=== PATIENT | male | born 1995 | race Caucasian/White ===

== ENCOUNTER 2020-04-10 16:48 | Emergency (ER) | payer SELFPAY ==
[2020-04-10] MEDS ORDERED: NA CHLORIDE 0.9% 1,000 ML ONE (17:21)
[2020-04-10] MEDS ORDERED: FAMOTIDINE 20 MG/2 ML VIAL IV ONE (17:21)
[2020-04-10 17:22] LABS: Basophils % 0.5 % (0-1.3); Hematocrit 37.9 % (39.6-49.0); Lymphocytes % 18.9 % (15.3-44.8); RBC Red Blood Cell Count 4.18 M/uL (4.33-5.43)
[2020-04-10 17:30] LABS: ALT/SGPT 60 U/L (12-78); AST/SGOT 56 U/L (15-37); Albumin 3.9 g/dL (3.4-5.0); Alkaline Phosphatase 61 U/L (45-117); BUN Blood Urea Nitrogen 17 mg/dL (7-18); Bicarbonate 30 mmol/L (21-32); Bilirubin Direct 0.2 mg/dL (0-0.2); Bilirubin Total 0.4 mg/dL (0.2-1.0); Glucose Level 73 mg/dL (74-106); Lipase 135 U/L (73-393); Potassium 3.5 mmol/L (3.5-5.1); Protein, Total 7.4 g/dL (6.4-8.2); Sodium Level 137 mmol/L (136-145)
[2020-04-10 17:33] LABS: Urine Blood NEGATIVE (NEG); Urine Glucose NEGATIVE (NEG); Urine Protein 1+ (NEG)
--- NOTE | 2020-04-10 18:03 | ER ---
Nurse's Notes [facility] Name: Ramu Valdez Age: 24 yrs Sex: Male : 1995 Arrival Date: 04/10/2020 Time: 16:50 Bed 20 Private MD: Diagnosis: Abdominal tenderness;Gastritis, unspecified;Alcohol abuse Presentation: 04/10 16:52 Chief complaint: Patient states: Sudden onset of epigastric pain that radiates into ll1 left chest since 1605 while walking into [employer] . Had nausea and became sweaty. States he drank a lot of whiskey last night. EMS states: EKG:NS, 18 G L AC, 300 ml NS bolus given. Aspirin 324mg and 1 nitro given en route. Phenergan 12.5 mg given, nausea and chest pain are better. Fingerstick 96. Coronavirus screen: Client denies travel out of the [place] in the last 14 days. At this time, the client does not indicate any symptoms associated with coronavirus-19. Ebola Screen: Patient denies travel to an Ebola-affected area in the 21 days before illness onset. Initial Sepsis Screen: Does the patient meet any 2 criteria? No. Patient's initial sepsis screen is negative. Does the patient have a suspected source of infection? Yes: Acute abdominal pain. Risk Assessment: Do you want to hurt yourself or someone else? Patient reports no desire to harm self or others. Onset of symptoms was April 10, 2020. 16:52 Method Of Arrival: EMS: [place] [id number] 16:52 Acuity: CARMINE 3 ll1 Historical: - Allergies: 16:55 No Known Allergies; ll1 - PMHx: 16:55 Anxiety; Depression; Bipolar disorder; ll1 - Immunization history:: Flu vaccine is not up to date. - Social history:: Smoking status: Reported history of juuling and/or vaping. Patient denies any tobacco usage or history of. - Family history:: not pertinent. Screenin:00 Abuse screen: Denies threats or abuse. Denies injuries from another. Nutritional ss screening: No deficits noted. Tuberculosis screening: Never had TB. Fall Risk None identified. Assessment: 17:00 General: Appears in no apparent distress. comfortable, Behavior is calm, cooperative, ss Denies fever, feeling ill, fatigue, chills. Pain: Complains of pain in epigastric area Pain currently is 0 out of 10 on a pain scale. at worst was 7 out of 10 on a pain scale. Quality of pain is described as burning, aching, Pain began Is episodic. Neuro: Level of Consciousness is awake, alert, obeys commands, Oriented to person, place, time, situation. Cardiovascular: Capillary refill < 3 seconds is brisk in bilateral fingers. Respiratory: Denies cough, shortness of breath labored breathing. GI: Patient currently denies diarrhea, nausea, vomiting. : No signs and/or symptoms were reported regarding the genitourinary system. Denies burning with urination, urinary frequency. EENT: Oral mucosa is moist. Throat is clear. Derm: Skin is intact, is healthy with good turgor, Skin is pink, warm \T\ dry. normal. Musculoskeletal: Circulation, motion, and sensation intact. Range of motion: intact in all extremities, Swelling absent. 18:17 Reassessment: Patient appears in no apparent distress at this time. Patient and/or ss family updated on plan of care and expected duration. Pain level reassessed. Patient is alert, oriented x 3, equal unlabored respirations, skin warm/dry/pink. Patient denies pain at this time. Vital Signs: 16:52 BP 132 / 84; Pulse 62; Resp 17; Temp 97.8; Pulse Ox 100% ; Weight 79.38 kg; Height 6 ll1 ft. 0 in. (182.88 cm); Pain 2/10; 16:52 Body Mass Index 23.73 (79.38 kg, 182.88 cm) ll1 ED Course: 16:50 Patient arrived in ED. 16:54 Ruben Dacosta MD is Attending Physician. [facility] 16:55 Triage completed. ll1 16:56 Arm band placed on Patient placed in an exam room, on a stretcher. ll1 17:00 Patient has correct armband on for positive identification. Bed in low position. Call ss light in reach. Side rails up X 1. Pulse ox on. NIBP on. 17:04 Nia Powell RN is Primary Nurse. 17:05 Maintain EMS IV. Dressing intact. Good blood return noted. Site clean \T\ dry. Gauge \T\ site: 18 gauge in L AC. Patient maintains SpO2 saturation greater than 95% on room air. 17:18 Urine collected: clean catch specimen, clear. 3 17:53 Chest Single View XRAY In Process Unspecified. EDCO 17:57 EKG done, by ED staff, reviewed by Ruben Dacosta MD. formerly [facility] 18:17 No provider procedures requiring assistance completed. IV discontinued, intact, ss bleeding controlled, No redness/swelling at site. Pressure dressing applied. Administered Medications: 17:15 Drug: NS 0.9% 1000 ml Route: IV; Rate: 1 bolus; Site: right antecubital; 18:17 Follow up: IV Status: Completed infusion; IV Intake: 1000ml 17:15 Drug: Pepcid 20 mg Route: IVP; Site: right antecubital; 18:18 Follow up: Response: No adverse reaction ss Intake: 18:17 IV: 1000ml; Total: 1000ml. ss Outcome: 18:02 Discharge ordered by . [facility] 18:17 Discharged to home ambulatory. 18:17 Condition: improved 18:17 Discharge instructions given to patient, Instructed on discharge instructions, follow up and referral plans. medication usage, Demonstrated understanding of instructions, follow-up care, medications, Prescriptions given X 1. 18:17 Patient left the ED. ss Signatures: Dispatcher [employer] EDCO Ruben Dacosta MD MD cha Smirch, Shelby, RN RN Glory Hernandez formerly [facility] Esau Araujo, RN RN ll1
--- NOTE | 2020-04-10 18:03 | EDPHYS ---
Physician Documentation [facility] Name: Ramu Valdez Age: 24 yrs Sex: Male : 1995 Arrival Date: 04/10/2020 Time: 16:50 Bed 20 Private MD: ED Physician Ruben Dacosta HPI: 04/10 17:25 This 24 yrs old Male presents to ER via EMS with complaints of Epigastric giovanni Pain. 17:25 The patient or guardian reports chest pain that is located primarily in the substernal giovanni area, epigastric area. The patient presents with abdominal pain in the epigastric area, in the upper abdomen. Onset: The symptoms/episode began/occurred just prior to arrival. The symptoms radiate to chest. The pain does not radiate. Associated signs and symptoms: none. Modifying factors: The symptoms are alleviated by nothing, the symptoms are aggravated by nothing. The chest pain is described as burning. Historical: - Allergies: 16:55 No Known Allergies; ll1 - PMHx: 16:55 Anxiety; Depression; Bipolar disorder; ll1 - Immunization history:: Flu vaccine is not up to date. - Social history:: Smoking status: Reported history of juuling and/or vaping. Patient denies any tobacco usage or history of. - Family history:: not pertinent. ROS: 17:25 Constitutional: Negative for fever, chills, and weight loss, Eyes: Negative for injury, giovanni pain, redness, and discharge, ENT: Negative for injury, pain, and discharge, Neck: Negative for injury, pain, and swelling, Respiratory: Negative for shortness of breath, cough, wheezing, and pleuritic chest pain, Back: Negative for injury and pain, : Negative for injury, bleeding, discharge, and swelling, MS/Extremity: Negative for injury and deformity, Skin: Negative for injury, rash, and discoloration, Neuro: Negative for headache, weakness, numbness, tingling, and seizure, Psych: Negative for depression, anxiety, suicide ideation, homicidal ideation, and hallucinations, Allergy/Immunology: Negative for hives, rash, and allergies, Endocrine: Negative for neck swelling, polydipsia, polyuria, polyphagia, and marked weight changes, Hematologic/Lymphatic: Negative for swollen nodes, abnormal bleeding, and unusual bruising. 17:25 Cardiovascular: Positive for chest pain. 17:25 Abdomen/GI: Positive for abdominal pain, of the epigastric area, right upper quadrant and left upper quadrant. Exam: 17:25 Constitutional: This is a well developed, well nourished patient who is awake, alert, giovanni and in no acute distress. Head/Face: Normocephalic, atraumatic. Eyes: Pupils equal round and reactive to light, extra-ocular motions intact. Lids and lashes normal. Conjunctiva and sclera are non-icteric and not injected. Cornea within normal limits. Periorbital areas with no swelling, redness, or edema. ENT: Nares patent. No nasal discharge, no septal abnormalities noted. Tympanic membranes are normal and external auditory canals are clear. Oropharynx with no redness, swelling, or masses, exudates, or evidence of obstruction, uvula midline. Mucous membranes moist. Neck: Trachea midline, no thyromegaly or masses palpated, and no cervical lymphadenopathy. Supple, full range of motion without nuchal rigidity, or vertebral point tenderness. No Meningismus. Chest/axilla: Normal chest wall appearance and motion. Nontender with no deformity. No lesions are appreciated. Cardiovascular: Regular rate and rhythm with a normal S1 and S2. No gallops, murmurs, or rubs. Normal PMI, no JVD. No pulse deficits. Respiratory: Lungs have equal breath sounds bilaterally, clear to auscultation and percussion. No rales, rhonchi or wheezes noted. No increased work of breathing, no retractions or nasal flaring. Back: No spinal tenderness. No costovertebral tenderness. Full range of motion. Skin: Warm, dry with normal turgor. Normal color with no rashes, no lesions, and no evidence of cellulitis. MS/ Extremity: Pulses equal, no cyanosis. Neurovascular intact. Full, normal range of motion. Neuro: Awake and alert, GCS 15, oriented to person, place, time, and situation. Cranial nerves II-XII grossly intact. Motor strength 5/5 in all extremities. Sensory grossly intact. Cerebellar exam normal. Normal gait. Psych: Awake, alert, with orientation to person, place and time. Behavior, mood, and affect are within normal limits. 17:25 Abdomen/GI: Inspection: abdomen appears normal, Bowel sounds: normal, Palpation: mild abdominal tenderness, in the epigastric area, right upper quadrant and left upper quadrant, Liver: no appreciated palpable abnormalities, Hernia: not appreciated. 18:03 ECG was reviewed by the Attending Physician. [facility] Vital Signs: 16:52 BP 132 / 84; Pulse 62; Resp 17; Temp 97.8; Pulse Ox 100% ; Weight 79.38 kg; Height 6 ll1 ft. 0 in. (182.88 cm); Pain 2/10; 16:52 Body Mass Index 23.73 (79.38 kg, 182.88 cm) ll1 MDM: 16:54 Patient medically screened. [facility] 17:28 Data reviewed: vital signs, nurses notes, lab test result(s), radiologic studies, plain [facility] films. 17:59 Differential diagnosis: abnormal EKG, acute myocardial infarction, anxiety, coronary giovanni artery disease cholecystitis, Cholelithiasis esophagitis, gastroesophageal reflux disease (GERD), hiatal hernia, pancreatitis, pericarditis, pneumonia, pneumothorax, stable angina, unstable angina, gastritis, gastroesophageal reflux disease, myocardia ischemia or infarction, non-specific abd pain, urinary tract infection. HEART Score: History: Slightly Suspicious (0), ECG: Normal (0), Age: < or = 45 years (0), Risk Factors: No Risk Factors Known (0), Troponin: < or = 1 x Normal Limit (0). The patient's deep vein thrombosis risk score was calculated as follows: Total Score: 0. This patient was found to be at low risk for a deep vein thrombosis by using the Well's assessment criteria. The patient's pulmonary embolism risk score was calculated as follows: Total Score: 0-2 points. This patient was found to be at low risk for a pulmonary embolism by using the Well's assessment criteria. ERIN Risk Score: TOTAL SCORE = 0. Data interpreted: school bus monitor: rate is 62 beats/min, rhythm is regular, Pulse oximetry: on room air is 100 %. Test interpretation: by ED physician or midlevel provider: ECG, plain radiologic studies. Counseling: I had a detailed discussion with the patient and/or guardian regarding: the historical points, exam findings, and any diagnostic results supporting the discharge/admit diagnosis, lab results, radiology results, the need for outpatient follow up, for definitive care, a family practitioner. 04/10 16:54 Order name: Basic Metabolic Panel; Complete Time: 17:59 [facility] 04/10 16:54 Order name: CBC with Diff; Complete Time: 17:59 [facility] 04/10 16:54 Order name: Hepatic Function; Complete Time: 17:59 [facility] 04/10 16:54 Order name: Lipase; Complete Time: 17:59 [facility] 04/10 17:18 Order name: Alcohol Level; Complete Time: 17:59 [facility] 04/10 17:23 Order name: Troponin I; Complete Time: 17:59 [facility] 04/10 16:54 Order name: IV Saline Lock; Complete Time: 17:05 [facility] 04/10 16:54 Order name: Labs collected and sent; Complete Time: 17:05 [facility] 04/10 16:55 Order name: Urine Dipstick-Ancillary (obtain specimen); Complete Time: 17:15 [facility] 04/10 17:23 Order name: Chest Single View XRAY [facility] 04/10 17:23 Order name: EKG; Complete Time: 17:24 [facility] 04/10 17:31 Order name: Urine Dipstick--Ancillary (enter results); Complete Time: 17:59 04/10 17:23 Order name: EKG - Nurse/Tech; Complete Time: 17:59 [facility] EC:03 Rate is 65 beats/min. Rhythm is regular. QRS [place] is Normal. PA interval is normal. QRS giovanni interval is normal. QT interval is normal. No Q waves. T waves are Normal. No ST changes noted. Clinical impression: NSR w/ Non-specific ST/T Changes and No evidence of ischemia. Interpreted by me. Reviewed by me. Administered Medications: 17:15 Drug: NS 0.9% 1000 ml Route: IV; Rate: 1 bolus; Site: right antecubital; 18:17 Follow up: IV Status: Completed infusion; IV Intake: 1000ml 17:15 Drug: Pepcid 20 mg Route: IVP; Site: right antecubital; ss 18:18 Follow up: Response: No adverse reaction Disposition: 04/10/20 18:02 Discharged to Home. Impression: Abdominal tenderness, Gastritis, unspecified, Alcohol abuse. - Condition is Stable. - Discharge Instructions: Abdominal Pain, Adult, Gastritis, Adult, Gastritis, Adult, [id number], Abdominal Pain, Adult, [id number], Alcohol Abuse and Nutrition. - Prescriptions for Pepcid 20 mg Oral Tablet - take 1 tablet by ORAL route every 12 hours for 10 days; 20 tablet. - Medication Reconciliation Form, Thank You Letter, Antibiotic Education, Prescription Opioid Use form. - Follow up: Private Physician; When: 2 - 3 days; Reason: Recheck today's complaints, Continuance of care, Re-evaluation by your physician. - Problem is new. - Symptoms have improved. Signatures: Dispatcher [employer] EDME Ruben Dacosta MD MD cha Smirch, Shelby, RN RN ss Esau Araujo RN RN ll1 Corrections: (The following items were deleted from the chart) 18:17 18:02 04/10/2020 18:02 Discharged to Home. Impression: Abdominal tenderness; Gastritis, ss unspecified; Alcohol abuse. Condition is Stable. Forms are Medication Reconciliation Form, Thank You Letter, Antibiotic Education, Prescription Opioid Use. Follow up: Private Physician; When: 2 - 3 days; Reason: Recheck today's complaints, Continuance of care, Re-evaluation by your physician. Problem is new. Symptoms have improved. giovanni
--- NOTE | 2020-04-10 18:20 | RAD REPORT ---
EXAM DESCRIPTION: Chele Single View04/10/2020 5:53 pm CLINICAL HISTORY: Chest pain COMPARISON: 2009 FINDINGS: The lungs appear clear of acute infiltrate. The heart is normal size IMPRESSION: No acute abnormalities displayed
[2020-04-10 18:37] VITALS: BP 132/84; TEMP 97.8; O2SAT 100
--- NOTE | 2020-04-12 07:45 | EKG ---
Test Date: 2020-04-10 Test Time: 17:57:09 Hospital Social Worker: MARTHA MEASUREMENT RESULTS: Intervals: Rate: 65 DE: 180 QRSD: 110 QT: 420 QTc: 436 [place]: P: 55 DE: 180 QRS: 68 T: 50 INTERPRETIVE STATEMENTS: Normal sinus rhythm RSR' or QR pattern in V1 suggests right ventricular conduction delay Septal infarct, age undetermined Abnormal ECG No previous ECG available for comparison Electronically Signed On 04-12-20 07:43:11 CDT by Yonis Guillen
== END 2020-04-10 18:17 | disposition home or self-care (01) ==
LOC: ER 16:48
DX: K29.70 Gastritis, unspecified, without bleeding (principal); F10.10 Alcohol abuse, uncomplicated; Z87.891 Personal history of nicotine dependence
CPT/HCPCS: 36415; 71045; 80048; 80076; 80320; 81003; 83690; 84484; 85025; 93005; 96361; 96374; 99284; J7030

== ENCOUNTER 2022-06-22 12:27 | Emergency (ER) | payer SELFPAY ==
--- OUTSIDE RECORDS SUMMARY | 2022-06-22 12:30 | XMS REPORT | Continuity of Care Document ---
:1995 Author Organization [facility] t Address [address] [place] [address] Care Team Providers Name Role Phone Pcp, Patient Does Not Have A Primary Care Physician +[id number] Bella Temple Attending Clinician Payers Payer Name Policy Type Policy Number Effective Date Expiration Date S ource Problems Condition Condition Condition Status Onset Resolution Last Treating Co mments Source Name Details Category Date Date Treatment Clinician Date Anticholin Anticholin Disease Active U nivers ergic drug ergic drug 03-03 it y of overdose overdose 00:00: [place] 00 [facility] Fracture Fracture Disease Active [facility] [place] [facility] [place] 4[facility]19 it y of of left of left 00:00: [place] foot, open foot, open 00 Me dical Branch Allergies, Adverse Reactions, Alerts Allergy Allergy Status Severity Reaction(s) Onset Inactive Treating Comm ents Source Name Type Date Date Clinician NO KNOWN Drug Active Univers ALLERGIE Class ity of [facility] [place] [facility] Social History Social Habit Start Date Stop Date Quantity Comments Source History SDOH University o f Alcohol Std [place] [facility] Drinks [facility] History SDOH University o f Alcohol Binge [place] [facility] Exposure to Not sure University of SARS-CoV-2 [place] [facility] (event) Branch History SDOH University o f Alcohol Frequency [place] [facility] Alcohol intake 2021-03-15 2021-03-15 Current drinker Unive rsity of 00:00:00 00:00:00 of alcohol [place] [facility] (finding) Branch Alcohol Comment 2017-03-03 2017-03-03 6 pack a day/ Univer sity of 00:00:00 00:00:[facility] At [birth year] Universit y of 00:00:00 00:00:00 [facility] Smoking Status Start Date Stop Date Source Former smoker 2017-03-03 00:00:00 2017-03-03 00:00:00 [facility] Medications Ordered Filled Start Stop Current Ordering Indication Dosage Frequency Signature Comments Components Source Medication Medication Date Date Medication? Clinician (SIG) Name Name ibuprofen No 600mg 600 mg, Uni vers (IBU) 03-19 Oral, ity of tablet 600 02:45: 14:44 ONCE, 1 Var[place] as mg 00 :00 dose, On Medical Fri Branch 03/18/21 at 2145, MATT cephALEXin No 500mg 500 mg, Un michael (KEFLEX) 03-19 Oral, ity of capsule 500 02:45: 14:44 [place] 1 [place] :[place] dose, On Medical Fri Branch 03/18/21 at 2145, MATT
Re ason for Anti-Infec tive: Empiric Non-Surgic al Prophylaxi s
Durat ion of therapy: 72 hours ibuprofen Yes [id number] 600mg Take 1 Univers 600 mg 03-18 tablet by ity of tablet 00:00: mouth [place] 00 every 6 Medical (six) Branch hours as needed for Pain (scale 4-6). cephALEXin 2020- No [id number] 500mg Take 1 Univers (KEFLEX) 03-18 capsule by ity of 500 mg 00:00: 04:59 mouth 3 [place] capsule 00 :00 (three) Medical times Branch daily for 7 days. Immunizations Ordered Filled Immunization Date Status Comments Sourc e Immunization Name Name Td 2021-03-15 Completed [facility] 00:00:00 [facility] Vital Signs Vital Name Observation Time Observation Value Comments Source Systolic blood 2021-03-18 23:19:00 121 mm[Hg] Univer sity of pressure [facility] Diastolic blood 2021-03-18 23:19:00 77 mm[Hg] Unive rsity of pressure [facility] Heart rate 2021-03-18 23:19:00 74 /min Universi ty [facility] Body temperature 2021-03-18 23:19:00 37.33 [facility] Respiratory rate 2021-03-18 23:19:00 19 /[facility] Body height 2021-03-18 23:19:00 175.3 cm Universi ty [facility] Body weight 2021-03-18 23:19:00 78.019 kg Universi ty [facility] BMI 2021-03-18 23:19:00 25.40 kg/m2 Universi ty [facility] Oxygen saturation in 2021-03-18 23:19:00 99 /min [facility] Arterial blood by [facility] Pulse oximetry [place] Procedures Procedure Date / Time Performed Performing Clinician [facility] e ASSIGNMENT OF BENEFITS 2021-03-19 00:05:31 Doctor Unassigned, No [facility] NOTICE OF PRIVACY 2021-03-18 23:03:03 Doctor Unassigned, No [facility] Encounters Start End Encounter Admission Attending Care Care Encounter Source Date/Time Date/Time Type Type Clinicians Facility Department ID 2021-03-18 2021-03-18 Emergency [place], [facility] [id number] Univers 18:23:00 20:48:00 Bella Infante [id number] i ty [facility] [id number] [facility] [id number] Medi kristin 084 Branch 2021-03-18 2021-03-18 Emergency X [facility] ERT [id number] Univers 18:23:00 18:23:00 ity [facility] Results This patient has no known results.
[2022-06-22] MEDS ORDERED: BUPIVACAINE 0.5% PF 10 ML VIAL ONE (13:01)
[2022-06-22] MEDS ORDERED: LORAZEPAM 1 MG TABLET ONE (13:01)
--- NOTE | 2022-06-22 13:54 | EDPHYS ---
Physician Documentation [facility] Name: Ramu Valdez Age: 26 yrs Sex: Male : 1995 Arrival Date: 06/22/2022 Time: 12:28 Bed 5 Private MD: ED Physician Brian Villegas HPI: 06/22 12:38 This 26 yrs old Male presents to ER via Ambulatory with complaints of Finger Injury. jmm 12:38 The patient or guardian reports injury, a laceration. Onset: The symptoms/episode jmm began/occurred acutely, just prior to arrival. Modifying factors: The symptoms are alleviated by nothing, the symptoms are aggravated by nothing. Associated signs and symptoms: Pertinent negatives: cyanosis distally, decreased sensation distally, fever, nausea, numbness distally, tingling distally, vomiting. The patient has experienced similar episodes in the past. Patient states accidentally cutting his left middle finger with a new knife.. Historical: - Allergies: 12:32 No Known Allergies; ss - PMHx: 12:32 Anxiety; Bipolar disorder; Depression; ss ROS: 12:38 Constitutional: Negative for fever, chills, and weight loss, Cardiovascular: Negative jmm for chest pain, palpitations, and edema, Respiratory: Negative for shortness of breath, cough, wheezing, and pleuritic chest pain. 12:38 MS/extremity: Positive for injury or acute deformity, laceration. 12:38 All other systems are negative. Exam: 12:38 Constitutional: This is a well developed, well nourished patient who is awake, alert, jmm and in no acute distress. Head/Face: atraumatic. Eyes: EOMI, no conjunctival erythema appreciated ENT: Moist Mucus Membranes Neck: Trachea midline, Supple Chest/axilla: Normal chest wall appearance and motion. Cardiovascular: Regular rate and rhythm. No edema appreciated Respiratory: Normal respirations, no respiratory distress appreciated Abdomen/GI: Non distended Back: Normal ROM 12:38 Skin: 1.5 cm laceration to the palmar surface of the left third distal phalanx. 12:38 Neuro: Orientation: is normal, Mentation: is normal, Memory: is normal. 12:38 Psych: Behavior/mood is pleasant, cooperative. Vital Signs: 12:31 BP 133 / 88; Pulse 79; Resp 16; Temp 98.3; Pulse Ox 100% ; Weight 68.04 kg; Height 6 ss ft. (182.88 cm); Pain 5/10; 12:31 Body Mass Index 20.34 (68.04 kg, 182.88 cm) ss MDM: 12:38 Patient medically screened. [facility] 13:52 Data reviewed: vital signs, nurses notes. Counseling: I had a detailed discussion with [facility] the patient and/or guardian regarding: the historical points, exam findings, and any diagnostic results supporting the discharge/admit diagnosis, the need for outpatient follow up, to return to the emergency department if symptoms worsen or persist or if there are any questions or concerns that arise at home. Administered Medications: 13:00 Drug: Ativan (LORazepam) 1 mg Route: PO; aa5 13:50 Follow up: Response: No adverse reaction; Anxiety decreased aa5 13:50 Drug: Marcaine (bupivacaine) (0.5 %) 10 ml {Note: administered by PA. Lv} Volume: 10 ss ml; Route: Infiltration; Disposition: 14:35 Co-signature as Attending Physician, Brian Villegas MD I agree with the assessment and rt plan of care. Disposition Summary: 06/22/22 13:53 Discharge Ordered Location: Home [facility] Condition: Stable [facility] Diagnosis - Finger Laceration [facility] Followup: [facility] - With: Private Physician - When: 7 - 10 days - Reason: Recheck today's complaints, Continuance of care, Staple/Suture removal, Re-evaluation by your physician Discharge Instructions: - Discharge Summary Sheet [facility] - Laceration Care, Adult [facility] Forms: - Medication Reconciliation Form [facility] - Thank You Letter [facility] - Antibiotic Education [facility] - Prescription Opioid Use [facility] Prescriptions: - Doxycycline Hyclate 100 mg Oral Tablet - take 1 tablet by ORAL route every 12 hours; 20 tablet; Refills: 0, Product [facility] Selection Permitted Signatures: Lv Iglesias PA PA jmm Calderon, Audri RN RN aa5 Nia Powell RN RN ss [place], Ryan, MD MD rt
--- NOTE | 2022-06-22 13:54 | ER ---
Nurse's Notes [facility] Name: Ramu Valdez Age: 26 yrs Sex: Male : 1995 Arrival Date: 06/22/2022 Time: 12:28 Bed 5 Private MD: Diagnosis: Finger Laceration Presentation: 06/22 12:31 Chief complaint: Left middle finger laceration from clean knife just [employer]. Bleeding ss controlled. Coronavirus screen: At this time, the client does not indicate any symptoms associated with coronavirus-19. Ebola Screen: No symptoms or risks identified at this time. Risk Assessment: Do you want to hurt yourself or someone else? Patient reports no desire to harm self or others. Onset of symptoms was June 22, 2022. 12:31 Method Of Arrival: Ambulatory ss 12:31 Acuity: CARMINE 4 ss 12:45 Initial Sepsis Screen: Does the patient meet any 2 criteria? No. Patient's initial aa5 sepsis screen is negative. Does the patient have a suspected source of infection? No. Patient's initial sepsis screen is negative. Historical: - Allergies: 12:32 No Known Allergies; ss - PMHx: 12:32 Anxiety; Bipolar disorder; Depression; ss Screenin:45 Abuse screen: Denies threats or abuse. Nutritional screening: No deficits noted. aa5 Tuberculosis screening: No symptoms or risk factors identified. 12:45 [facility] ED Fall Risk Assessment (Adult) History of falling in the last 3 months, aa5 including since admission No falls in past 3 months (0 pts) Confusion or Disorientation No (0 pts) Intoxicated or Sedated No (0 pts) Impaired Gait No (0 pts) Mobility Assist Device Used No (0 pt) Altered Elimination No (0 pt) Score/Fall Risk Level 0 - 2 = Low Risk Maintained a safe environment, Educated pt \T\ family on fall prevention, incl call for assistance when getting out of bed. Assessment: 12:45 General: Appears uncomfortable, Behavior is calm, cooperative. Pain: Complains of pain aa5 in left middle finger Pain currently is 5 out of 10 on a pain scale. Neuro: Level of Consciousness is awake, alert, obeys commands, Oriented to person, place, time, situation. Cardiovascular: Capillary refill < 3 seconds is brisk in bilateral fingers. Respiratory: Airway is patent Respiratory effort is even, unlabored, Respiratory pattern is regular, symmetrical. GI: No signs and/or symptoms were reported involving the gastrointestinal system. : No signs and/or symptoms were reported regarding the genitourinary system. EENT: No signs and/or symptoms were reported regarding the EENT system. Derm: Skin is pink, warm \T\ dry. Laceration noted to distal aspect of left middle finger, measuring approximately 1-2 cm long, bleeding controlled, dressing in place. Musculoskeletal: Range of motion: intact in all extremities. 14:15 Reassessment: Patient is alert, oriented x 3, equal unlabored respirations, skin aa5 warm/dry/pink. Vital Signs: 12:31 BP 133 / 88; Pulse 79; Resp 16; Temp 98.3; Pulse Ox 100% ; Weight 68.04 kg; Height 6 ss ft. (182.88 cm); Pain 5/10; 12:31 Body Mass Index 20.34 (68.04 kg, 182.88 cm) ss ED Course: 12:28 Patient arrived in ED. mr 12:28 Lv Iglesias PA is PHCP. jmm 12:29 Silver Anthony MD is Attending Physician. jmm 12:29 Brian Villegas MD is Attending Physician. jmm 12:32 Triage completed. ss 12:35 Princess Euceda, RN is Primary Nurse. aa5 12:45 Patient has correct armband on for positive identification. Bed in low position. aa5 13:50 Assist provider with laceration repair on left middle finger using sutures. Set up aa5 tray. Performed by Lv RAMSEY Dressed with Neosporin, 2x2 and Coban Patient tolerated well. 13:50 Patient did not have IV access during this emergency room visit. aa5 Administered Medications: 13:00 Drug: Ativan (LORazepam) 1 mg Route: PO; aa5 13:50 Follow up: Response: No adverse reaction; Anxiety decreased aa5 13:50 Drug: Marcaine (bupivacaine) (0.5 %) 10 ml {Note: administered by ROXY Awan.} Volume: 10 ss ml; Route: Infiltration; Medication: 13:50 VIS not applicable for this client. aa5 Outcome: 13:53 Discharge ordered by . [facility] 14:15 Discharged to home ambulatory. aa5 14:15 Condition: good 14:15 Discharge instructions given to patient, Instructed on discharge instructions, follow up and referral plans. medication usage, Demonstrated understanding of instructions, follow-up care, medications, Prescriptions given X 1. 14:17 Patient left the ED. ss Signatures: Lv Iglesias PA PA jmm Rivera, Mary mr Euceda, Princess, RN RN aa5 Nia Powell RN RN ss
[2022-06-22 14:28] VITALS: BP 133/88; TEMP 98.3; O2SAT 100
== END 2022-06-22 14:17 | disposition home or self-care (01) ==
LOC: ER 12:27
PROC: 0JQK0ZZ Repair Left Hand Subcutaneous Tissue and Fascia, Open Approach (ICD-10-PCS; principal; 2022-06-22)
DX: S61.213A Laceration without foreign body of left middle finger without damage to nail, initial encounter (principal)
CPT/HCPCS: 99283

== ENCOUNTER 2023-03-13 09:05 | Emergency (ER) | payer OTHER ==
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
--- NOTE | 2023-03-13 09:16 | EDPHYS ---
Physician Documentation [facility] Name: Ramu Valdez Age: 27 yrs Sex: Male : 1995 Arrival Date: 03/13/2023 Time: 09:05 Bed IW1 Private MD: ED Physician Zurdo Bush HPI: 03/13 09:25 This 27 yrs old Male presents to ER via Ambulatory with complaints of Insect Bite - kb Possible Spider, Numbness Of Arm, [place]. 09:25 the patient presents with a swollen area of the right wrist. Description: erythematous. kb Onset: The symptoms/episode began/occurred just prior to arrival. Possible cause(s): spider bite. Associated signs and symptoms: Pertinent positives: erythema. Modifying factors: the symptoms are alleviated by nothing, the symptoms are aggravated by nothing. Severity of symptoms: At their worst the symptoms were very mild, in the emergency department the symptoms are unchanged. The patient has not experienced similar symptoms in the past. The patient has not recently seen a physician. Pt reports he believes he was bit by a spider this morning. Noticed an area of redness with two small holes. States he feels numbness and tingling around the area. . Historical: - Allergies: 09:17 No Known Allergies; ap3 - Home Meds: 09:17 None [Active]; ap3 - PMHx: 09:17 Anxiety; Bipolar disorder; Depression; ap3 - Immunization history:: Client reports having NOT received the Covid vaccine. - Social history:: Smoking status: Reported history of juuling and/or vaping. ROS: 09:23 Constitutional: Negative for fever, chills, and weight loss. kb 09:23 Skin: Positive for erythema, insect bite. 09:23 All other systems are negative. Exam: 09:23 Constitutional: This is a well developed, well nourished patient who is awake, alert, kb and in no acute distress. Head/Face: Normocephalic, atraumatic. ENT: Moist Mucous membranes Cardiovascular: Regular rate Respiratory: Respirations even and unlabored. No increased work of breathing. Talking in full sentences MS/ Extremity: Pulses equal, no cyanosis. Neurovascular intact. Full, normal range of motion. Neuro: Awake and alert, GCS 15, oriented to person, place, time, and situation. Moves all extremities. Normal gait. 09:23 Constitutional: The patient appears anxious. 09:23 Skin: erythema, insect bite to palmar aspect of right forearm. . Vital Signs: 09:16 BP 156 / 90; Pulse 73; Resp 18; Temp 98.2; Pulse Ox 99% ; Weight 72.57 kg; Pain 2/10; ap3 09:16 Pain Scale: Adult ap3 MDM: 09:14 Patient medically screened. kb 09:30 Differential diagnosis: abscess, allergic reaction, cellulitis, insect bite. Data kb reviewed: vital signs, nurses notes. Counseling: I had a detailed discussion with the patient and/or guardian regarding the historical points, exam findings, and any diagnostic results supporting the discharge/admit diagnosis, the need for outpatient follow up, a family practitioner, to return to the emergency department if symptoms worsen or persist or if there are any questions or concerns that arise at home. Administered Medications: No medications were administered Disposition Summary: 03/13/23 09:15 Discharge Ordered Location: Home kb Condition: Stable kb Diagnosis - Insect bite (nonvenomous) of right forearm kb Followup: kb - With: Emergency Department - When: As needed - Reason: Worsening of condition Followup: kb - With: Private Physician - When: 2 - 3 days - Reason: Recheck today's complaints, Continuance of care, Re-evaluation by your physician Discharge Instructions: - Discharge Summary Sheet kb - Spider Bite, [id number] kb Forms: - Medication Reconciliation Form kb - Thank You Letter kb - Antibiotic Education kb - Prescription Opioid Use kb - Patient Portal Instructions kb - Leadership Thank You Letter kb Prescriptions: - Cephalexin 500 mg Oral Capsule - take 1 capsule by ORAL route every 8 hours for 10 days; 30 capsule; Refills: 0, kb Product Selection Permitted Signatures: Autumn Norman, FAVIO MULLINS-Jodie Mckeon, RN RN ap3
--- NOTE | 2023-03-13 09:26 | ER ---
Nurse's Notes [facility] [place], [place] Name: Ramu Valdez Age: 27 yrs Sex: Male : 1995 Arrival Date: 03/13/2023 Time: 09:05 Bed IW1 Private MD: Diagnosis: Insect bite (nonvenomous) of right forearm Presentation: 03/13 09:16 Chief complaint: Patient states: he feels he got bit by a bug, maybe a spider on his ap3 right wrist this morning. Coronavirus screen: At this time, the client does not indicate any symptoms associated with coronavirus-19. Ebola Screen: No symptoms or risks identified at this time. Initial Sepsis Screen: Does the patient meet any 2 criteria? No. Patient's initial sepsis screen is negative. Does the patient have a suspected source of infection? No. Patient's initial sepsis screen is negative. Risk Assessment: Do you want to hurt yourself or someone else? Patient reports no desire to harm self or others. Onset of symptoms was March 13, 2023. 09:16 Method Of Arrival: Ambulatory ap3 09:16 Acuity: CARMINE 5 ap3 Triage Assessment: 09:17 Bite description: bite sustained to right hand by an unknown animal, animal ap3 information: vaccination(s) is not applicable. General: Appears in no apparent distress. Behavior is calm, cooperative, appropriate for age. Pain: Denies pain. Neuro: Level of Consciousness is awake, alert, obeys commands, Oriented to person, place, time, situation. Cardiovascular: Patient's skin is warm and dry. Respiratory: Airway is patent Respiratory effort is even, unlabored, Respiratory pattern is regular, symmetrical. Historical: - Allergies: 09:17 No Known Allergies; ap3 - Home Meds: 09:17 None [Active]; ap3 - PMHx: 09:17 Anxiety; Bipolar disorder; Depression; ap3 - Immunization history:: Client reports having NOT received the Covid vaccine. - Social history:: Smoking status: Reported history of juuling and/or vaping. Screenin:18 [facility] ED Fall Risk Assessment (Adult) History of falling in the last 3 months, ap3 including since admission No falls in past 3 months (0 pts). Abuse screen: Denies threats or abuse. Nutritional screening: No deficits noted. Tuberculosis screening: No symptoms or risk factors identified. Assessment: 09:18 Derm: Skin is healthy with good turgor. ap3 09:19 Derm: Skin is pink, warm \T\ dry. ap3 Vital Signs: 09:16 BP 156 / 90; Pulse 73; Resp 18; Temp 98.2; Pulse Ox 99% ; Weight 72.57 kg; Pain 2/10; ap3 09:16 Pain Scale: Adult ap3 ED Course: 09:08 Patient arrived in ED. im 09:14 Autumn Norman FNP-C [facility]. kb 09:14 Zurdo Bush MD is Attending Physician. kb 09:17 Triage completed. ap3 09:18 Arm band placed on left wrist. ap3 09:18 Patient has correct armband on for positive identification. ap3 09:18 Provided Education on: skin and wound care. ap3 09:18 No provider procedures requiring assistance completed. Patient did not have IV access ap3 during this emergency room visit. Administered Medications: No medications were administered Medication: 09:18 VIS not applicable for this client. ap3 Outcome: 09:15 Discharge ordered by . kb 09:25 Discharged to home ambulatory. ap3 09:25 Condition: good 09:25 Discharge instructions given to patient, Instructed on discharge instructions, follow up and referral plans. medication usage, Demonstrated understanding of instructions, follow-up care, medications, Prescriptions given X 1. 09:25 Patient left the ED. ap3 Signatures: Autumn Norman FNP-C FNP-Ckb Prokisch, Amanda, RN RN ap3 Margaret Musa im
[2023-03-13 09:29] VITALS: BP 156/90; TEMP 98.2; O2SAT 99
== END 2023-03-13 09:25 | disposition home or self-care (01) ==
LOC: ER 09:05
DX: S50.861A Insect bite (nonvenomous) of right forearm, initial encounter (principal)
CPT/HCPCS: 99283